=== PATIENT | male | born 1980 | race Two or more races ===

== ENCOUNTER 2020-12-18 08:55 | Emergency (ER) | payer SELFPAY ==
[~2020-12-18] VITALS: Ht 172.7 cm; Wt 102.1 kg
[2020-12-18] MEDS ORDERED: LIDOCAINE 1% HCL (LOCAL ANESTH.) INJ 20ML MDV IJ ONE (09:30)
[2020-12-18] MEDS ORDERED: LIDOCAINE 1% HCL (LOCAL ANESTH.) INJ 20ML MDV ONE (09:30)
[2020-12-18 09:55] VITALS: BP 147/99
[2020-12-18] MEDS ORDERED: TETANUS-DIPTH-ACEL PERTUSSIS 0.5ML SYR Tdap IM ONE (10:00)
== END 2020-12-18 10:50 | disposition home or self-care (01) ==
LOC: ER 08:55 → EEVIPCON 08:55 → ER 10:14
DX: S61.210A Laceration without foreign body of right index finger without damage to nail, initial encounter (principal); F17.210 Nicotine dependence, cigarettes, uncomplicated; Z90.49 Acquired absence of other specified parts of digestive tract; W26.8XXA Contact with other sharp object(s), not elsewhere classified, initial encounter; Y93.89 Activity, other specified; Y92.89 Other specified places as the place of occurrence of the external cause; Y99.8 Other external cause status
CPT/HCPCS: 12002; 90471; 90715; 99283; J2001; 12013